=== PATIENT | male | born 1970 | race Caucasian/White ===

== ENCOUNTER → 2020-10-13 08:41 | Outpatient (CLI) | payer OTHER, SELFPAY ==
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
== END ==
PROVIDERS: Referring Provider Physical Medicine & Rehabilitation; Visit Provider Physical Medicine & Rehabilitation
DX: M25.559 Pain in unspecified hip (principal)
CPT/HCPCS: 73502

== ENCOUNTER → 2021-12-19 12:52 | Outpatient (CLI) | payer OTHER, SELFPAY ==
--- NOTE | 2021-12-19 12:54 | DI.RAD.S_ITS ---
PROCEDURE: XR WRIST LT MIN 3V INDICATIONS: LEFT WRIST PAIN TECHNIQUE: 4 views of the wrist were acquired. COMPARISON: None. FINDINGS: Bones: No displaced fracture. No dislocation. There is questionable cortical irregularity at the radial surface of the scaphoid on the scaphoid view. Scaphoid view: As above Soft tissues: No suspicious soft tissue calcifications. IMPRESSION: Questionable scaphoid cortical regularity. Correlate for snuffbox point tenderness. Otherwise no acute radiographic abnormality. If there is high concern for internal derangement, MRI could be ordered. Dictated by: Luca Mcintosh M.D. on 12/19/2021 at 16:27 Approved by: Luca Mcintosh M.D. on 12/19/2021 at 16:29
== END ==
PROVIDERS: Referring Provider Physical Medicine & Rehabilitation; Visit Provider Physical Medicine & Rehabilitation
DX: M25.532 Pain in left wrist (principal); M65.4 Radial styloid tenosynovitis [de Quervain]
CPT/HCPCS: 20550; 73110; 99213; J0702